=== PATIENT | female | born 1975 | race Caucasian/White ===

== ENCOUNTER 2023-02-19 02:10 | Emergency (ER) | payer BC, OTHER ==
[2023-02-19 02:56] VITALS: RESP 16
--- NOTE | 2023-02-19 02:58 | ED ---
General Adult HPI - General Chief complaint: Chest Pain Stated complaint: rib pain,sob Time Seen by Provider: 02/19/23 02:22 Source: patient, RN notes reviewed, old records reviewed Mode of arrival: ambulatory - History of Present Illness Initial comments: 47-year-old female presenting with left-sided chest pain which began several hours prior to arrival. Patient reports left-sided chest pain underneath her left breast. This began at rest. There was associated dyspnea. No cough or fever. No prior history of CAD or PE. Patient is a nonsmoker, nondiabetic. She has history of elevated blood pressure but is not currently being treated for hypertension. - Related Data Home Medications Medication Instructions Recorded Confirmed No Known Home Medications 01/04/16 01/04/16 Allergies Allergy/AdvReac Type Severity Reaction Status Date / Time No Known Allergies Allergy Verified 02/19/23 02:17 Review of Systems ROS Statement: Those systems with pertinent positive or pertinent negative responses have been documented in the HPI. ROS Other: All systems not noted in ROS Statement are negative. Past Medical History Past Medical History: No Reported History History of Any Multi-Drug Resistant Organisms: None Reported Past Surgical History: Cholecystectomy Past Psychological History: No Psychological Hx Reported Past Alcohol Use History: None Reported Past Drug Use History: None Reported General Exam General appearance: alert, in no apparent distress Head exam: Present: atraumatic, normocephalic Eye exam: Present: normal appearance, PERRL ENT exam: Present: normal exam Neck exam: Present: normal inspection. Absent: tenderness Respiratory exam: Present: normal lung sounds bilaterally, other (Left breast mass). Absent: respiratory distress, wheezes, chest wall tenderness Cardiovascular Exam: Present: regular rate, normal rhythm GI/Abdominal exam: Present: soft. Absent: distended, tenderness, guarding Extremities exam: Present: normal inspection, normal capillary refill. Absent: pedal edema, calf tenderness Neurological exam: Present: alert, oriented X3, CN II-XII intact. Absent: motor sensory deficit Psychiatric exam: Present: normal affect, normal mood Skin exam: Present: warm, dry, intact. Absent: cyanosis, diaphoretic Course Vital Signs 02/19/23 02/19/23 02/19/23 02:14 02:40 03:49 Temperature 97.8 F Pulse Rate 89 84 Respiratory 18 16 Rate Blood Pressure 168/106 167/99 151/90 O2 Sat by Pulse 100 100 Oximetry - Reevaluation(s) Reevaluation #1: 02/19/23 05:16 I did inform patient of the CT results including suspicious breast mass and pulmonary nodules with concern for metastatic disease. I offered the patient admission for further evaluation and treatment. She declines. She prefers outpatient treatment. I did refer the patient to breast surgery as well as oncology. I also provided names of primary care providers EKG Findings - EKG Comments: EKG Findings:: EKG: Sinus rhythm, LVH, rate of 84, PA interval 159, QRS duration 87, QTC 391, no ST segment elevation. Medical Decision Making - Medical Decision Making Was pt. sent in by a medical professional or institution (, PA, [employer]RE[employer] SUPERVISOR, urgent care, hospital, or senior care...) When possible be specific @ -[No] Did you speak to anyone other than the patient for history (EMS, parent, family, police, friend...)? What history was obtained from this source @ -[No] Did you review nursing and triage notes (agree or disagree)? Why? @ -[I reviewed and agree with nursing and triage notes] Were old charts reviewed (outside hosp., previous admission, EMS record, old EKG, old radiological studies, urgent care reports/EKG's, senior care records)? Report findings @ -[No old charts were reviewed] Differential Diagnosis (chest pain, altered mental status, abdominal pain women, abdominal pain men, vaginal bleeding, weakness, fever, dyspnea, syncope, heada kailey, dizziness, GI bleed, back pain, seizure, CVA, palpatations, mental health, musculoskeletal)? @ -Differential Chest Pain: Stable Angina, Unstable Angina, STEMI, NSTEMI Aortic Dissection, Pneumothorax, Musculoskeletal, Esophageal Spasm GERD, Cholecystitis, Pancreatitis, Zoster, this is not meant to be an all-inclusive list. EKG interpreted by me (3pts min.). @ -[As above] X-rays interpreted by me (1pt min.). @ -Chest x-ray negative for acute cardiopulmonary findings CT interpreted by me (1pt min.). @ -CT angiography was performed of the chest in the setting of an elevated d- dimer with pleuritic chest pain. This was negative for PE but showed a large sided breast mass as well as pulmonary nodules and lymphadenopathy. U/S interpreted by me (1pt. min.). @ -[None done] What testing was considered but not performed or refused? (CT, X-rays, U/S, labs)? Why? @ -[None] What meds were considered but not given or refused? Why? @ -[None] Did you discuss the management of the patient with other professionals (professionals i.e. , PA, [employer] SUPERVISOR, lab, RT, psych nurse, social work job titles, admiralty lawyer, teacher, youth liaison officer, case technician)? Give summary @ -[No] Was smoking cessation discussed for >3mins.? @ -[No] Was critical care preformed (if so, how long)? @ -[No] Were there social determinants of health that impacted care today? How? (Homelessness, low income, unemployed, alcoholism, drug addiction, transportation, low edu. Level, literacy, decrease access to med. care, assisted, rehab)? @ -[No] Was there de-escalation of care discussed even if they declined (Discuss DNR or withdrawal of care, Hospice)? DNR status @ -[No] What co-morbidities impacted this encounter? (DM, HTN, Smoking, COPD, CAD, Cancer, CVA, ARF, Chemo, Hep., AIDS, mental health diagnosis, sleep apnea, morbid obesity)? @ -Hypertension Was patient admitted / discharged? Hospital course, mention meds given and rou te, prescriptions, significant lab abnormalities, going to OR and other pertinent info. @ -47-year-old female presenting with left-sided chest pain and pain under her left breast. Patient does have a palpable mass within the left breast. She has an EKG showing sinus rhythm without ST segment elevation. She had essentially a normal CBC, normal CMP, negative troponin. She did have a significantly elevated d-dimer and CT angiography was ordered to rule out pulmonary embolism. There was no pulmonary embolism but there was multiple pulmonary nodules as well as left sided breast mass with concern for metastatic disease. I did offer the patient admission for further evaluation treatment however she preferred outpatient workup. She is given appropriate referrals. Undiagnosed new problem with uncertain prognosis? @ -[No] Drug Therapy requiring intensive monitoring for toxicity (Heparin, Nitro, Insulin, Cardizem)? @ -[No] Were any procedures done? @ -[No] Diagnosis/symptom? @ -Breast mass, pulmonary nodules] Acute, or Chronic, or Acute on Chronic? @ -[Acute] Uncomplicated (without systemic symptoms) or Complicated (systemic symptoms)? @ -[Complicated] Side effects of treatment? @ -[No] Exacerbation, Progression, or Severe Exacerbation? @ -[No] Poses a threat to life or bodily function? How? (Chest pain, [place], [place], pneumonia, PE, COPD, DKA, ARF, appy, cholecystitis, CVA, Diverticulitis, Homicidal, Suicidal, threat to staff... and all critical care pts) @ -[Yes, breast mass with concern for metastases] - Lab Data Result diagrams: 02/19/23 02:32 02/19/23 02:31 Lab Results 02/19/23 02/19/23 02/19/23 Range/Units 02:31 02:31 02:31 WBC (3.8-10.6) k/uL RBC (3.80-5.40) m/uL Hgb (11.4-16.0) gm/dL Hct (34.0-46.0) % MCV (80.0-100.0) fL MCH (25.0-35.0) pg MCHC (31.0-37.0) g/dL RDW (11.5-15.5) % Plt Count (150-450) k/uL MPV Neutrophils % % Lymphocytes % % Monocytes % % Eosinophils % % Basophils % % Neutrophils # (1.3-7.7) k/uL Lymphocytes # (1.0-4.8) k/uL Monocytes # (0-1.0) k/uL Eosinophils # (0-0.7) k/uL Basophils # (0-0.2) k/uL PT 9.8 (9.0-12.0) sec INR 0.9 (<1.2) APTT 21.7 L (22.0-30.0) sec D-Dimer 5.79 H (<0.60) mg/L FEU Sodium 136 L (137-145) mmol/L Potassium 4.1 (3.5-5.1) mmol/L Chloride 104 (98-107) mmol/L Carbon Dioxide 27 (22-30) mmol/L Anion Gap 5 mmol/L BUN 25 H (7-17) mg/dL Creatinine 0.86 (0.52-1.04) mg/dL Est GFR (CKD-EPI)AfAm >90 (>60 ml/min/1.73 sqM) Est GFR (CKD-EPI)NonAf 83 (>60 ml/min/1.73 sqM) Glucose 101 H (74-99) mg/dL Calcium 9.5 (8.4-10.2) mg/dL Magnesium 1.8 (1.6-2.3) mg/dL Total Bilirubin 0.5 (0.2-1.3) mg/dL AST 41 H (14-36) U/L ALT 17 (4-34) U/L Alkaline Phosphatase 141 H (38-126) U/L Troponin I <0.012 (0.000-0.034) ng/mL Total Protein 7.7 (6.3-8.2) g/dL Albumin 4.4 (3.5-5.0) g/dL 02/19/23 Range/Units 02:32 WBC 12.7 H (3.8-10.6) k/uL RBC 4.35 (3.80-5.40) m/uL Hgb 12.8 (11.4-16.0) gm/dL Hct 37.9 (34.0-46.0) % MCV 87.1 (80.0-100.0) fL MCH 29.5 (25.0-35.0) pg MCHC 33.8 (31.0-37.0) g/dL RDW 12.7 (11.5-15.5) % Plt Count 219 (150-450) k/uL MPV 7.9 Neutrophils % 78 % Lymphocytes % 14 % Monocytes % 6 % Eosinophils % 1 % Basophils % 0 % Neutrophils # 9.9 H (1.3-7.7) k/uL Lymphocytes # 1.7 (1.0-4.8) k/uL Monocytes # 0.8 (0-1.0) k/uL Eosinophils # 0.2 (0-0.7) k/uL Basophils # 0.0 (0-0.2) k/uL PT (9.0-12.0) sec INR (<1.2) APTT (22.0-30.0) sec D-Dimer (<0.60) mg/L FEU Sodium (137-145) mmol/L Potassium (3.5-5.1) mmol/L Chloride (98-107) mmol/L Carbon Dioxide (22-30) mmol/L Anion Gap mmol/L BUN (7-17) mg/dL Creatinine (0.52-1.04) mg/dL Est GFR (CKD-EPI)AfAm (>60 ml/min/1.73 sqM) Est GFR (CKD-EPI)NonAf (>60 ml/min/1.73 sqM) Glucose (74-99) mg/dL Calcium (8.4-10.2) mg/dL Magnesium (1.6-2.3) mg/dL Total Bilirubin (0.2-1.3) mg/dL AST (14-36) U/L ALT (4-34) U/L Alkaline Phosphatase (38-126) U/L Troponin I (0.000-0.034) ng/mL Total Protein (6.3-8.2) g/dL Albumin (3.5-5.0) g/dL Disposition Clinical Impression: Breast mass, left, Pulmonary nodules, Atypical chest pain Disposition: HOME SELF-CARE Condition: Fair Instructions (If sedation given, give patient instructions): Pulmonary Nodules (ED), Breast Mass (ED) Is patient prescribed a controlled substance at d/c from ED?: No Referrals: None,Stated [Primary Care Provider] - 1-2 days Va Coats MD [STAFF PHYSICIAN] - 1-2 days Giacomo Santo MD [STAFF PHYSICIAN] - 1-2 days Braulio Dinero MD [STAFF PHYSICIAN] - 1-2 days Juana Johnson III, MD [STAFF PHYSICIAN] - 1-2 days Robert Peters DO [STAFF PHYSICIAN] - 1-2 days Time of Disposition: 05:10
[2023-02-19 03:00] LABS: Basophils % (A) 0 %; Eosinophils # (A) 0.2 k/uL (0-0.7); Eosinophils % (A) 1 %; HCT 37.9 % (34.0-46.0); HGB 12.8 gm/dL (11.4-16.0); Lymphocytes # (A) 1.7 k/uL (1.0-4.8); Lymphocytes % (A) 14 %; MCH 29.5 pg (25.0-35.0); MCHC 33.8 g/dL (31.0-37.0); MCV 87.1 fL (80.0-100.0); Mean Platelet Volume 7.9; Monocytes # (A) 0.8 k/uL (0-1.0); Monocytes % (A) 6 %; Neutrophils # (A) 9.9 k/uL (1.3-7.7); Neutrophils % (A) 78 %; Platelet Count 219 k/uL (150-450); RBC 4.35 m/uL (3.80-5.40); RDW 12.7 % (11.5-15.5); WBC 12.7 k/uL (3.8-10.6)
[2023-02-19 03:01] LABS: ALT 17 U/L (4-34); AST 41 U/L (14-36); African American GFR (CKD) >90 (>60 ml/min/1.73 sqM); Albumin 4.4 g/dL (3.5-5.0); Alkaline Phosphatase 141 U/L (38-126); Anion Gap 5 mmol/L; Blood Urea Nitrogen 25 mg/dL (7-17); Calcium 9.5 mg/dL (8.4-10.2); Carbon Dioxide 27 mmol/L (22-30); Chloride 104 mmol/L (98-107); Glucose 101 mg/dL (74-99); Magnesium 1.8 mg/dL (1.6-2.3); Non-African American GFR(CKD) 83 (>60 ml/min/1.73 sqM); Potassium 4.1 mmol/L (3.5-5.1); Sodium 136 mmol/L (137-145); Total Bilirubin 0.5 mg/dL (0.2-1.3); Total Protein 7.7 g/dL (6.3-8.2)
--- NOTE | 2023-02-19 03:32 | XR ---
EXAM: XR Chest, 2 Views CLINICAL HISTORY: ITS.REASON XR Reason: Chest Pain TECHNIQUE: Frontal and lateral views of the chest. COMPARISON: No relevant prior studies available. FINDINGS: Lungs: Unremarkable. No consolidation. Pleural space: Unremarkable. No pneumothorax. Heart: Unremarkable. No cardiomegaly. Mediastinum: Unremarkable. Bones/joints: Unremarkable. IMPRESSION: Normal chest x-rays.
[2023-02-19 03:44] LABS: INR 0.9 (<1.2); Partial Thromboplastin Time 21.7 sec (22.0-30.0); Prothrombin Time 9.8 sec (9.0-12.0)
--- NOTE | 2023-02-19 04:53 | CT ---
EXAM: CT Angiography Chest With Intravenous Contrast CLINICAL HISTORY: ITS.REASON CT Reason: violet/pos dimer TECHNIQUE: Axial computed tomographic angiography images of the chest with intravenous contrast. CTDI is 21.77 mGy and DLP is 385 mGy-cm. This CT exam was performed using one or more of the following dose reduction techniques: automated exposure control, adjustment of the mA and/or kV according to patient size, and/or use of iterative reconstruction technique. MIP reconstructed images were created and reviewed. COMPARISON: No relevant prior studies available. FINDINGS: Pulmonary arteries: Unremarkable. No pulmonary embolism. Aorta: No acute findings. No thoracic aortic aneurysm. Lungs: Multiple randomly distributed solid pulmonary nodules measuring 12.6 cm in the inferior right base. Mild bibasilar atelectasis. No consolidation. Pleural space: Unremarkable. No significant effusion. No pneumothorax. Heart: Unremarkable. No cardiomegaly. No significant pericardial effusion. No evidence of RV dysfunction. Bones/joints: Lytic lesion in the posterior right eighth rib. No dislocation. Soft tissues: Left sided breast mass measuring 4.0 x 4.8 x 5.2 cm with tiny metallic density in the inferior aspect of the breast mass which may represent biopsy clip. Status post cholecystectomy. Lymph nodes: Left-sided axillary adenopathy measuring up to 2.1 cm on short axis.. No enlarged lymph nodes. IMPRESSION: 1. No acute pulmonary embolism. 2. Left-sided breast mass left-sided axillary adenopathy, multiple scattered pulmonary nodules, and lytic lesion in the right eighth rib consistent with metastatic breast cancer.
[2023-02-19 05:17] VITALS: BP 159/68; PULSE 72; TEMP 98.4
== END 2023-02-19 05:17 | disposition home or self-care (01) ==
LOC: EC 02:10
DX: N63.20 Unspecified lump in the left breast, unspecified quadrant (principal); R91.1 Solitary pulmonary nodule; Z90.49 Acquired absence of other specified parts of digestive tract
CPT/HCPCS: 36415; 93005; 85379; 80053; 83735; 84484; 85025; 85610; 85730; 71046; 71275; 99285; Q9967

== ENCOUNTER → 2023-04-04 | Outpatient (CLI) | payer BC ==
[2023-04-04 09:12] VITALS: BP 144/110; PULSE 117; RESP 18; TEMP 97.7
== END ==
LOC: WWCWWP 08:57
PROVIDERS: ATTEND Surgery
DX: N63.0 Unspecified lump in unspecified breast (principal)

== ENCOUNTER → 2023-04-04 | Day surgery (SDC) | payer BC ==
--- NOTE | 2023-04-04 09:54 | P.GSHP ---
History of Present Illness H&P Date: 04/04/23 Chief Complaint: left breast mass Eduarda is a 47 year old white female seen with a complaint of a mass in her left breast. She was seen in the ER with chest pain on 02-19-[address] revealed a 4.8 by 5.2 cm mass in her left breast. Multiople pulmonary nodules were noted as well as left sided adenopathy and a lytic lesion in the right eighth rib. She also underwent a chest x-ray in the emergency room which was considered to be normal. She underwent a bilateral mammogram and 5922 this revealed a 6.2 x 6.5 cm lesion in the midportion of the left breast. Additionally an ultrasound was performed which confirmed this with the lesion being taller than wide. This was her first mammogram. The patient did not have any specific lesions reported in the right breast. She felt a lump in her left breast for approximately a year. It has increased in size. She has never had any surgery on her breasts. She is not complaining of any recent breast trauma or infection. Does complain of some dimpling in the left breast, she is uncertain as to how long this has been . Caffiene: 1/2 cup/day nicotine:none chocolate: occasional BCP: used them for about 5 year in past form [age] hormones: none periods still regular Family History: maternal grandmother: Mesothelioma maternal great uncle: cancer ? 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[employer] Social History: Nicotine: Negative Alcohol: Negative Drugs: Negative - Constitutional Constitutional: Denies chills, Denies fever - EENT Eyes: denies blurred vision, denies pain Ears: deny: decreased hearing, tinnitus Ears, nose, mouth and throat: Denies headache, Denies sore throat - Breasts Breasts: bilateral: as per HPI - Cardiovascular Cardiovascular: Denies chest pain, Denies shortness of breath - Respiratory Respiratory: Denies cough, Denies 7 - Gastrointestinal Gastrointestinal: Denies abdominal pain, Denies diarrhea, Denies nausea, Denies vomiting - Genitourinary (Female) Genitourinary: Denies dysuria, Denies hematuria - Menstruation Menstruation: Reports as per HPI - Musculoskeletal Musculoskeletal: Reports as per HPI, Denies myalgias - Integumentary Integumentary: Denies pruritus, Denies rash - Neurological Neurological: Reports weakness, Denies numbness - Psychiatric Psychiatric: Denies anxiety, Denies depression - Endocrine Endocrine: Denies fatigue, Denies weight change - Hematologic/Lymphatic Comment: none - Allergic/Immunologic Allergic/Immunologic: Reports seasonal allergies Past Medical History Past Medical History: No Reported History Additional Past Medical History / Comment(s): back pain History of Any Multi-Drug Resistant Organisms: None Reported Past Surgical History: Cholecystectomy Past Anesthesia/Blood Transfusion Reactions: No Reported Reaction Past Psychological History: No Psychological Hx Reported Smoking Status: Never smoker Past Alcohol Use History: None Reported Past Drug Use History: None Reported Medications and Allergies Home Medications Medication Instructions Recorded Confirmed Type traMADol HCL 50 mg PO Q6H 03/28/23 04/04/23 History Cholecalciferol [Vitamin D3 (25 25 mcg PO DAILY 04/04/23 04/04/23 History Mcg = 1000 Iu)] Turmeric Root Extract [Turmeric] 500 mg PO DAILY 04/04/23 04/04/23 History Allergies Allergy/AdvReac Type Severity Reaction Status Date / Time No Known Allergies Allergy Verified 04/04/23 09:06 Surgical - Exam - General no distress - Eyes normal ocular movement - ENT no hearing loss - Neck trachea midline - Respiratory normal respiratory effort, clear to auscultation - Cardiovascular Rhythm: regular Heart Sounds: normal: S1, S2 - Abdomen Abdomen: soft, non tender, no guarding, no rigid, no rebound - Integumentary normal turgor - Neurologic no disoriented, no combative - Musculoskeletal normal gait, normal posture - Psychiatric oriented to time, oriented to person, oriented to place, speech is normal, memory intact Breast Exam: BRA: 40D Inspection: Asymmetry of the breast with right breast grade 2/3 ptosis, left breast with a fullness in the 12 o'clock position Palpation: Right breast: Multiple positional exam no dominant masses or nodules of concern Right axilla: No adenopathy of concern Left breast: Approximately a centimeter fullness starting at the 12 o'clock position and extending down to 6:00 with some change in the contour of the breast Left axilla: Positive adenopathy, enlarged lymph node felt which does not appear to be fixed to the underlying structures Results Mammogram and ultrasound personally reviewed Assessment and Plan Assessment: Impression: 47-year-old white female with chest pain presenting to the emergency room and noted to have a mass in the left breast pulmonary nodules lytic lesion right rib Plan: biopsy of the breast mass and node under the arm follow up next week after the results of the biopsy CC: Dr. Peters
--- NOTE | 2023-04-15 09:36 | MM ---
Reason for Exam: Post Procedure Mammogram. Last screening mammogram was performed less than 1 month ago. Patient History: Menarche at age 15. First Full-Term at age 19. Premenopausal. Risk Values: Katie 5 year model risk: 0.6%. NCI Lifetime model risk: 7.0%. Prior Study Comparison: 03/19/2023 Left US breast limited LT, [facility]. 03/19/2023 Bilateral MG 3D diag mammo w/cad SUSAN, [facility]. Tissue Density: Left: There are scattered fibroglandular densities. Pathology Description: Location: axillary tail. Marker Left Behind. Needle Type: Mammotome Cores: 6 Gauge: 13 Pathology Description: Location: 12 o'clock. Marker Left Behind. Needle Type: Celero Cores: 2 Gauge: 12 The procedure of ultrasound guided core biopsy was explained to the patient. Benefits, alternatives, and risks were discussed. An informed consent was then obtained. The patient was placed in supine positioning for imaging and for the procedure. The overlying skin was prepped and draped in usual sterile fashion. Lidocaine was used as anesthetic into the skin followed by lidocaine/epinephrine into the subcutaneous tissue up to area of concern at each site in the left breast in turn. 1. BI-RADS 5, large centrally located 12:00 mass: Under ultrasound guidance, a 12-gauge Celero vacuum assisted biopsy gun device was used to obtain 2 core samples. Following this, a Tophat biopsy clip was left in lesion. 2. BI-RADS 5, enlarged axillary node: Under ultrasound guidance, a 13-gauge vacuum-assisted mammotome Elite biopsy gun was used to obtain 6 core samples. Following this, a Hydromark coil biopsy clip was left in lesion. Successful deployment was confirmed by ultrasound. The patient tolerated the procedure well without any immediate complication. The patient was kept in the radiology department for short stay after the procedure and then discharged home in stable condition. Postprocedure mammogram: The patient was transferred to mammography for physician ordered post procedure mammogram for clip placement verification. On the postprocedure mammogram, the clip is noted within the large centrally located mass. On the second view for the axillary node, possible partially visualized second microcoil along the posterior margin of the enlarged axillary node. IMPRESSION: Successful, uncomplicated ultrasound guided core biopsy of (1) BI-RADS 5 large centrally located mass and (2) BI-RADS 5 axillary node in the left breast. Full pathology results to follow. Pathology Results: Result: Malignant, Invasive ductal carcinoma. A. LEFT BREAST, 12:00, ULTRASOUND GUIDED NEEDLE CORE BIOPSY: Invasive poorly differentiated ductal carcinoma (Grade 3). See Surgical Pathology Cancer Case Summary and Comment. B. LEFT AXILLA LYMPH NODE, ULTRASOUND GUIDED NEEDLE CORE BIOPSY: Invasive poorly differentiated ductal carcinoma (Grade 3) with focal mucinous features. See Surgical Pathology Cancer Case Summary and Comment. Notes SURGICAL PATHOLOGY CANCER CASE SUMMARY - INVASIVE CARCINOMA OF THE BREAST, BIOPSY PROCEDURE: Ultrasound guided needle core biopsy. SPECIMEN LATERALITY: Left. TUMOR SITE: 12:00 and left axilla. HISTOLOGIC TYPE: Invasive carcinoma of no special type (ductal). See comment. HISTOLOGIC GRADE (KYA HISTOLOGIC SCORE): GLANDULAR (ACINAR)/TUBULAR DIFFERENTIATION: Score 3. NUCLEAR PLEOMORPHISM: Score 3. MITOTIC RATE: Score 3. OVERALL GRADE: Grade 3 (total score 9). DUCTAL CARCINOMA IN SITU (DCIS): Focally present in part A. NUCLEAR GRADE: Grade 3. COMMENT: E-Cadherin immunoperoxidase stain performed on blocks A1 and B1, and evaluated with an appropriate positive control shows the tumor in both biopsies to be immunohistochemically positive for E-Cadherin. The results confirm the diagnoses of invasive ductal carcinoma. It is noted that the tumor in parts A and B appears slightly morphologically different, with focal mucinous features identified in part B. For this reason, ER, AL, HER2 and Ki-67 studies were performed on both blocks A1 and B1. It is also noted that no lymphoid tissue is identified in part B (submitted as left axilla lymph node). Therefore, it cannot be determined whether the tumor in part B represents a completely replaced node versus a separate primary arising in axillary breast tissue. Ki-67 immunoperoxidase stain performed on blocks A1 and B1 and evaluated with appropriate positive control show a tumor proliferative index of approximately 31-40% in part A and 31-40% in part B. Monorail Charger Operator material from this case was also reviewed by Dr. Ed Rajan, who agrees with the diagnoses of malignancy. ANCILLARY STUDIES: PART A (LEFT BREAST 12:00): ESTROGEN RECEPTOR (ER): Positive (81-90%), moderate to strong intensity staining. PROGESTERONE RECEPTOR (AL): Positive (11-20%), weak intensity staining. HER2 BY IHC: Positive (score 3+). PART B (LEFT AXILLA LYMPH NODE): ESTROGEN RECEPTOR (ER): Positive (61-70%), moderate to strong intensity staining. PROGESTERONE RECEPTOR (AL): Positive (21-30%), weak intensity staining. HER2 BY IHC: Positive (score 3+). Additional formalin-fixed paraffin embedded sections from block A1, B1 are immunostained at [place], [place] for the demonstration of estrogen and progesterone receptors, using rabbit IgG monoclonal antibodies ER clone SP1 and AL clone 1E2 with iView DAB detection ([place], [place], [place]). Using this method, and according to ASCO-CAP guidelines, a value of >1% nuclear staining is a positive result. Additional sections from block A1, B1 are immunostained for the evaluation of cell membrane antigens associated with the expression of the Her-2 gene product using the Pathway anti-HER-2/Jose rabbit monoclonal primary antibody 4B5 with ultraview DAB detection ([place], [place], [place]), the staining validated and performed at [place], [place], and including appropriate positive and negative controls. With this method, staining results are reported as follows: 0 is no staining of tumor cells or incomplete faint/barely perceptible membrane staining in less than 10% of tumor cells; 1+ is incomplete faint/barely perceptible membranes staining in greater than 10% of tumor cells; 2+ is weak/moderate complete membrane staining in greater than 10% of tumor cells; 3+ is circumferential complete membrane staining that is intense and present in greater than 10% of tumor cells. Results are interpreted as follows: 0,1+ negative; 2+ equivocal; 3+ positive. Current CAP/ASCO guidelines recommend further evaluation of equivocal immunostaining results by FISH testing to assess Her-2 overexpression at the gene level. Current CAP/ASCO guidelines recommend repeat testing of negative core biopsy immunostain results on additional specimens if the tumor is Grade 3, the amount of tumor assessed in the core material is small, the subsequent specimen contains high grade tumor morphologically distinct from that seen in the core, the core material is equivocal by immunostain and FISH, there is doubt about the appropriateness of specimen handling or fixation, or the pathologist suspects a negative result on the basis of test error. Overall Assessment: Malignant Assessment: MG diagnostic mammo LT wo CAD. - Left: Known biopsy proven malignancy, BI-RAD 6. Management: Surgical Consultation of the left breast. Electronically signed and approved by: Jana Ervin M.D. Radiologist
== END ==
LOC: RADUSWWP 08:57
PROVIDERS: ATTEND Surgery
DX: C50.812 Malignant neoplasm of overlapping sites of left female breast (principal); R91.8 Other nonspecific abnormal finding of lung field; Z90.49 Acquired absence of other specified parts of digestive tract; Z79.899 Other long term (current) drug therapy
CPT/HCPCS: 88305; 88342; 88341; 77065; 19083; 19084; A4648

== ENCOUNTER → 2023-04-05 | Outpatient (CLI) | payer BC ==
--- NOTE | 2023-04-06 07:16 | PE ---
EXAMINATION TYPE: PET CT fusion skull to thigh DATE OF EXAM: 04/05/2023 COMPARISON: NONE HISTORY: Newly diagnosed left-sided breast cancer. TECHNIQUE: Following the intravenous administration of 11.22 mCi of F-18 FDG, whole body images are performed from the skull base to the midthigh. Images are reviewed on the computer in the coronal, a xial, and sagittal planes. Reconstructed rotating images are created on independent workstation and reviewed on the computer. A localization and attenuation correction CT is performed in conjunction with the PET scan. Blood glucose level equals 92 SCAN: Initial Scan FINDINGS: SKULL BASE AND NECK: Abnormal hypermetabolic lymph node posterior to the inferior right submandibula r gland measuring 9 x 6 mm axial image 46, max SUV is 8.95. Mild diffuse uptake through the thyroid g land. Correlate clinically. Adjacent abnormal hypermetabolic adenopathy is felt present. There is abn ormal 1.4 cm lymph node just superior to right thyroid gland axial image 54, max SUV is 8.80. CHEST, MEDIASTINUM, AND HILAR REGION: There is large hypermetabolic left breast mass measuring 4.8 x 5.4 cm axial image 98, max SUV is 11.78. There is abnormal hypermetabolic left axillary lymph node wi th biopsy clip measuring 3.0 x 1.4 cm axial image 88, max SUV is 8.34. There are abnormal hypermetabolic and enlarged lymph nodes in the bilateral hilar region and also sca ttered throughout the mediastinum extending to supraclavicular region. Max SUV is 12.03 in the AP win teja axial image 82. No abnormal hypermetabolic uptake in the right breast or axilla. ABDOMEN AND PELVIS: Hypermetabolic area left hepatic lobe axial image [address] corre late, max SUV is 8.02. Hypermetabolic 2.3 x 1.5 cm right adrenal mass axial image 126, max SUV is 8.3 5. OSSEOUS STRUCTURES: Innumerable hypermetabolic osseous metastatic lesions. There is lytic destruction of the right posterolateral eighth rib axial image 103 noted, max SUV is 8.74 at this level. Hyperme tabolic Lytic destruction of the inferior left scapula noted axial image 98. OTHER CT: Mild cardiomegaly with tiny pericardial effusion is seen. Cholecystectomy clips are noted. Additional surgical clips in the anterior upper to mid abdomen are s een. Anteverted uterus is present. Scattered bilateral pelvic phleboliths are seen. IMPRESSION: Large left breast mass or neoplasm with left axillary adenopathy is redemonstrated. There is diffuse osseous metastatic disease. There is additional metastatic disease to lymph nodes in the neck and thorax. There is left hepatic metastatic lesion suspected and right adrenal metastatic lesio n noted.
== END | disposition home or self-care (01) ==
LOC: RADPETMAIN 06:32
PROVIDERS: ATTEND Family Medicine
DX: R92.8 Other abnormal and inconclusive findings on diagnostic imaging of breast (principal); R59.0 Localized enlarged lymph nodes; C79.51 Secondary malignant neoplasm of bone
CPT/HCPCS: 78815; A9552

== ENCOUNTER → 2023-04-12 | Outpatient (CLI) | payer BC ==
[2023-04-12 12:36] VITALS: BP 137/97; PULSE 135; RESP 18; TEMP 98.3
--- NOTE | 2023-04-12 12:56 | P.PN ---
Subjective Progress Note Date: 04/12/23 left breast mass Eduarda is a 47 year old white female seen with a complaint of a mass in her left breast. She was seen in the ER with chest pain on 02-19-[address] revealed a 4.8 by 5.2 cm mass in her left breast. Multiople pulmonary nodules were noted as well as left sided adenopathy and a lytic lesion in the right eighth rib. She also underwent a chest x-ray in the emergency room which was considered to be normal. She underwent a bilateral mammogram on 5922 this revealed a 6.2 x 6.5 cm lesion in the midportion of the left breast. Additionally an ultrasound was performed which confirmed this with the lesion being taller than wide. This was her first mammogram. The patient did not have any specific lesions reported in the right breast. She felt a lump in her left breast for approximately a year. It has increased in size. She has never had any surgery on her breasts. She is not complaining of any recent breast trauma or infection. Does complain of some dimpling in the left breast, she is uncertain as to how long this has been . ultrasound core biopsy of the left breast and left axilla on 04-04-23 (+) invasive ductal cancer; ER+, UT+, HER2+ PET scan was done 1 week ago Caffiene: 1/2 cup/day nicotine:none chocolate: occasional BCP: used them for about 5 year in past form 19- hormones: none periods still regular Family History: maternal grandmother: Mesothelioma maternal great uncle: cancer ? 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 Social History: Nicotine: Negative Alcohol: Negative Drugs: Negative - Constitutional Constitutional: Denies chills, Denies fever - EENT Eyes: denies blurred vision, denies pain Ears: deny: decreased hearing, tinnitus Ears, nose, mouth and throat: Denies headache, Denies sore throat - Breasts Breasts: bilateral: as per HPI - Cardiovascular Cardiovascular: Denies chest pain, Denies shortness of breath - Respiratory Respiratory: Denies cough, Denies 7 - Gastrointestinal Gastrointestinal: Denies abdominal pain, Denies diarrhea, Denies nausea, Denies vomiting - Genitourinary (Female) Genitourinary: Denies dysuria, Denies hematuria - Menstruation Menstruation: Reports as per HPI - Musculoskeletal Musculoskeletal: Reports as per HPI, Denies myalgias - Integumentary Integumentary: Denies pruritus, Denies rash - Neurological Neurological: Reports weakness, Denies numbness - Psychiatric Psychiatric: Denies anxiety, Denies depression - Endocrine Endocrine: Denies fatigue, Denies weight change - Hematologic/Lymphatic Comment: none - Allergic/Immunologic Allergic/Immunologic: Reports seasonal allergies Past Medical History Past Medical History: No Reported History Additional Past Medical History / Comment(s): back pain History of Any Multi-Drug Resistant Organisms: None Reported Past Surgical History: Cholecystectomy Past Anesthesia/Blood Transfusion Reactions: No Reported Reaction Past Psychological History: No Psychological Hx Reported Smoking Status: Never smoker Past Alcohol Use History: None Reported Past Drug Use History: None Reported Medications and Allergies Home Medications Medication Instructions Recorded Confirmed Type traMADol HCL 50 mg PO Q6H 03/28/23 04/04/23 History Cholecalciferol [Vitamin D3 (25 25 mcg PO DAILY 04/04/23 04/04/23 History Mcg = 1000 Iu)] Turmeric Root Extract [Turmeric] 500 mg PO DAILY 04/04/23 04/04/23 History Allergies Allergy/AdvReac Type Severity Reaction Status Date / Time No Known Allergies Allergy Verified 04/04/23 09:06 Objective - Vital Signs Vital signs: Vital Signs Temp 98.3 F 04/12/23 12:34 Pulse 135 H 04/12/23 12:34 Resp 18 04/12/23 12:34 BP 137/97 04/12/23 12:34 Pulse Ox 98 04/12/23 12:34 FiO2 Intake & Output 04/11/23 04/12/23 04/12/23 18:59 06:59 18:59 Weight 73.028 kg - Constitutional General appearance: Present: cooperative - EENT Eyes: Present: EOMI ENT: Present: hearing grossly normal - Neck Neck: Present: normal ROM - Respiratory Respiratory: bilateral: CTA - Cardiovascular Heart sounds: normal: S1, S2 - Musculoskeletal Musculoskeletal: Present: gait normal - Psychiatric Psychiatric: Present: A&O x's 3, appropriate affect, intact judgment & insight - Additional findings Additional findings: Breast Exam: BRA: 40D Inspection: Asymmetry of the breast with right breast grade 2/3 ptosis, left carlton ast with a fullness in the 12 o'clock position Palpation: Right breast: Multiple positional exam no dominant masses or nodules of concern Right axilla: No adenopathy of concern Left breast: Approximately a centimeter fullness starting at the 12 o'clock position and extending down to 6:00 with some change in the contour of the breast Left axilla: Positive adenopathy, enlarged lymph node felt which does not appear to be fixed to the underlying structures Assessment and Plan Assessment: Impression: 47-year-old white female with chest pain presenting to the emergency room and noted to have a mass in the left breast pulmonary nodules lytic lesion right rib Plan: biopsy of the breast mass and node under the arm (+) for invasive ductal cancer Await PET scan results Appointment medical oncology CC: Dr. Peters
== END ==
LOC: WWCWWP 11:57
PROVIDERS: ATTEND Surgery
DX: N63.20 Unspecified lump in the left breast, unspecified quadrant (principal); R91.8 Other nonspecific abnormal finding of lung field; C50.912 Malignant neoplasm of unspecified site of left female breast; Z17.0 Estrogen receptor positive status [ER+]; Z98.890 Other specified postprocedural states; Z80.8 Family history of malignant neoplasm of other organs or systems

== ENCOUNTER → 2023-04-16 | Outpatient (CLI) | payer BC ==
--- NOTE | 2023-04-17 10:54 | CA ---
Transthoracic Echo Report Name: Eduarda Ruggiero Age: 47 Gender: F : 1975 Exam Date: 04/16/2023 09:44 Exam Location: [place] [facility] Ht (in): 65 Wt (lb): 147 Ordering Physician: Holger Yuen MD Attending/Referring Phys: Inside Wirer Francoise Urban RDCS Procedure CPT: Indications: Z01.818 Chemo Cardiac Hx: Technical Quality: Fair Contrast 1: Total Dose (mL): Contrast 2: Total Dose (mL): MEASUREMENTS (Male / Female) Normal Values 2D ECHO LV Diastolic Diameter PLAX 3.2 cm 4.2 - 5.9 / 3.9 - 5.3 cm LV Systolic Diameter PLAX 2.2 cm IVS Diastolic Thickness 1.3 cm 0.6 - 1.0 / 0.6 - 0.9 cm LVPW Diastolic Thickness 1.4 cm 0.6 - 1.0 / 0.6 - 0.9 cm LV Relative Wall Thickness 0.9 RV Internal Dim ED PLAX 2.8 cm LA Volume 28.3 cm??? 18 - 58 / 22 - 52 cm??? M-MODE Aortic Root Diameter MM 2.9 cm LA Systolic Diameter MM 3.1 cm LA Ao Ratio MM 1.1 AV Cusp Separation MM 1.8 cm DOPPLER AV Peak Velocity 140.1 cm/s AV Peak Gradient 7.8 mmHg AV Mean Velocity 110.4 cm/s AV Mean Gradient 5.1 mmHg AV Velocity Time Integral 21.9 cm LVOT Peak Velocity 102.5 cm/s LVOT Peak Gradient 4.2 mmHg LVOT Velocity Time Integral 20.0 cm MV Area PHT 7.0 cm??? Mitral E Point Velocity 68.2 cm/s Mitral A Point Velocity 97.7 cm/s Mitral E to A Ratio 0.7 MV Deceleration Time 107.8 ms MV E' Velocity 7.4 cm/s Mitral E to MV E' Ratio 9.2 TR Peak Velocity 225.4 cm/s TR Peak Gradient 20.3 mmHg FINDINGS Left Ventricle Moderately increased left ventricular wall thickness. Normal left ventricular systolic function with no obvious regional wall motion abnormalities. Left ventricular cavity size normal. Left ventricular ejection fraction is estimated at 55-60 %. Right Ventricle Normal right ventricular size and function. Right ventricular systolic pressure within normal limits. Right Atrium Normal right atrial size. Left Atrium Normal left atrial size. Mitral Valve Structurally normal mitral valve. Trace mitral regurgitation. Aortic Valve Trileaflet aortic valve. No aortic valve stenosis or regurgitation. Tricuspid Valve Structurally normal tricuspid valve. Mild tricuspid regurgitation. Pulmonic Valve Trace pulmonic regurgitation. Pericardium No pericardial effusion. Aorta Normal size aortic root and proximal ascending aorta. CONCLUSIONS Normal LV systolic function with no evidence of foreign motion abnormalities Strain images did not indicate evidence of Amyloid Previewed by: Dr. Osmar Garcia MD (Electronically Signed) Final Date: 17 April 2023 10:53
== END | disposition home or self-care (01) ==
LOC: RADECHMAIN 09:34
PROVIDERS: ATTEND Internal Medicine Hematology & Oncology
DX: Z01.818 Encounter for other preprocedural examination (principal)
CPT/HCPCS: 93306

== ENCOUNTER → 2023-04-16 | Outpatient (CLI) | payer BC ==
--- NOTE | 2023-04-16 12:59 | MR ---
EXAMINATION TYPE: MR brain wo/w con DATE OF EXAM: 04/16/2023 COMPARISON: Correlation PET/CT 04/05/2023 HISTORY: 47-year-old female C50.412, Hx of Cancer, f/u TECHNIQUE: Multiplanar, multisequence images of the brain and brainstem were acquired before and aft er administration of 6 mL IV Gadavist. Diffusion weighted imaging is performed. FINDINGS: No evidence for acute infarction, hemorrhage, mass effect, midline shift, herniation, effacement of b khris cisterns, or extra-axial fluid collection. The ventricles and sulci are age-appropriate. There are numerous enhancing lesions throughout the supratentorial and infratentorial region. Approximately 5 in the left cerebral hemisphere, most at the patton-white matter interface, largest in the anterior left frontal lobe measuring 9 mm and left thalamus measuring 7 mm. Approximately 5 in the right cerebral hemisphere. A couple lesions are present along the tentorium cerebelli on each side. In addition, there are approximately 5 lesions in total on both sides of the cerebellum measuring up to 9 mm on the right. These lesions show corresponding bright T2 signal. The largest, for example, anterior left frontal lo be and right cerebellum show some mild surrounding vasogenic edema. Again, no mass effect. Midline structures demonstrate normal morphology. The craniocervical junction is normal. Dural venous sinuses are patent. The visualized sinuses are clear and the globes are intact. IMPRESSION: Scattered intracranial metastases, approximately 5 lesions in each cerebral hemisphere, a couple adelaide g the tentorium cerebelli, and 5 in the cerebellum. The largest, anterior left frontal lobe measuring 9 mm, left thalamus measuring 7 mm, and right cerebellum measuring 9 mm show mild vasogenic edema bu t no mass effect.
== END | disposition home or self-care (01) ==
LOC: RADMRIMAIN 09:36
PROVIDERS: ATTEND Internal Medicine Hematology & Oncology
DX: C50.412 Malignant neoplasm of upper-outer quadrant of left female breast (principal); C79.31 Secondary malignant neoplasm of brain
CPT/HCPCS: 70553; A9585

== ENCOUNTER → 2023-07-04 | Outpatient (CLI) | payer BC ==
--- NOTE | 2023-07-04 15:16 | CA ---
Transthoracic Echo Report Name: Eduarda Ruggiero Age: 47 Gender: F : 1975 Exam Date: 07/04/2023 09:56 Exam Location: [facility] Ht (in): 60 Wt (lb): 146 Ordering Physician: Holger Yuen MD Attending/Referring Phys: Holger Yuen MD Clay Puddler Jeanette Prajapati RDCS Procedure CPT: Indications: Z01.818 ENCOUNTER FOR OTHER PREPROCEDURAL EXAMINAT Cardiac Hx: Technical Quality: Good Contrast 1: Total Dose (mL): Contrast 2: Total Dose (mL): MEASUREMENTS (Male / Female) Normal Values 2D ECHO LV Diastolic Diameter PLAX 3.9 cm 4.2 - 5.9 / 3.9 - 5.3 cm LV Systolic Diameter PLAX 2.5 cm IVS Diastolic Thickness 1.3 cm 0.6 - 1.0 / 0.6 - 0.9 cm LVPW Diastolic Thickness 1.2 cm 0.6 - 1.0 / 0.6 - 0.9 cm LV Relative Wall Thickness 0.6 RV Internal Dim ED PLAX 3.0 cm LA Systolic Diameter LX 3.3 cm 3.0 - 4.0 / 2.7 - 3.8 cm LV Diastolic Volume MOD 4C 49.7 cm??? LV Systolic Volume MOD 4C 24.1 cm??? LV Ejection Fraction MOD 4C 51.6 % LV Cardiac Index MOD 4C 1572.5 cm???/min???m??? LV Diastolic Length 4C 6.8 cm LV Systolic Length 4C 5.7 cm LV Diastolic Volume MOD 2C 48.4 cm??? LV Systolic Volume MOD 2C 20.5 cm??? LV Ejection Fraction MOD 2C 57.6 % LV Cardiac Index MOD 2C 1706.9 cm???/min???m??? LV Diastolic Length 2C 7.1 cm LV Systolic Length 2C 6.2 cm LA Volume 42.1 cm??? 18 - 58 / 22 - 52 cm??? M-MODE Aortic Root Diameter MM 3.2 cm MV E Point Septal Separation 0.4 cm AV Cusp Separation MM 2.0 cm DOPPLER AV Peak Velocity 124.1 cm/s AV Peak Gradient 6.2 mmHg MV Area PHT 4.2 cm??? Mitral E Point Velocity 55.6 cm/s Mitral A Point Velocity 87.4 cm/s Mitral E to A Ratio 0.6 MV Deceleration Time 178.5 ms MV E' Velocity 3.8 cm/s Mitral E to MV E' Ratio 14.8 TR Peak Velocity 253.7 cm/s TR Peak Gradient 25.7 mmHg Right Ventricular Systolic Press 30.4 mmHg FINDINGS Left Ventricle Left ventricular ejection fraction is estimated at 50-55 %. Left ventricular cavity size normal. Moderately increased septal wall thickness. Mildly increased posterior wall thickness. Right Ventricle Normal right ventricular size. Right ventricular systolic pressure within normal limits. Right Atrium Normal right atrial size. Left Atrium Normal left atrial size. Mitral Valve Structurally normal mitral valve. Trace to mild mitral regurgitation. Aortic Valve Trileaflet aortic valve. No aortic valve stenosis or regurgitation. Tricuspid Valve Structurally normal tricuspid valve. Mild tricuspid regurgitation. Pulmonic Valve Structurally normal pulmonic valve. No pulmonic regurgitation. Pericardium No pericardial effusion. Aorta Normal size aortic root and proximal ascending aorta. CONCLUSIONS Normal LV size and systolic function No intracardiac masses Previewed by: Dr. Stephen Aponte MD (Electronically Signed) Final Date: 04 July 2023 15:15
== END | disposition home or self-care (01) ==
LOC: RADECHMAIN 09:44
PROVIDERS: ATTEND Internal Medicine Hematology & Oncology
DX: Z01.818 Encounter for other preprocedural examination (principal); I08.1 Rheumatic disorders of both mitral and tricuspid valves
CPT/HCPCS: 93306

== ENCOUNTER → 2023-07-31 | Outpatient (CLI) | payer BC ==
--- NOTE | 2023-07-31 11:26 | MR ---
EXAMINATION TYPE: MR brain wo/w con DATE OF EXAM: 07/31/2023 COMPARISON: 04/16/2000 HISTORY: Breast CA with mets TECHNIQUE: Multiplanar, multisequence images of the brain and brainstem is performed without and with IV contras t, utilizing 6.5 mL intravenous Gadavist . FINDINGS: Diffusion weighted images demonstrate no evidence of a recent infarct or other diffusion ab normality. Ventricular systems compatible patient's age. There is enhancing subcutaneous nodule along the left parietal convexity measuring 1 cm by clearly se en on the prior exam Additional 6 mm subcutaneous nodule along upper left parietal convexity retrospectively stable. There is a 5 mm subcutaneous nodule along the posterior right occiput is stable without enhancement possib ly related to sebaceous cyst Midline structures demonstrate normal morphology. The craniocervical junction appears within normal limits. Nonspecific area without enhancement Seen on T2 imaging and not well replicated on FLAIR. Measures 5 mm followed subsequently. Post contrast images demonstrate near complete resolution of enhancement in the right cerebellar shaniqua sphere. There is a residual linear area of enhancement in the area of previously described 9 mm nodul arity measuring approximately 4 mm. Stable 3 mm area of enhancement in the left cerebellum. Interval reduction in size of a cerebellar vermis lesion now measuring 3 mm Near complete resolution of right temporal 3 mm area of enhancement. On today's mm enhancement in the left temporal lobe has resolved. Previously noted left thalmus lesion measured 5 mm now measures 1.5 mm. Patient noted 4 mm nodule posterior to the atrium of the right lateral ventricle now measures 1 mm 5 mm nodule seen in the posterior right parietal lobe now measures 3 mm. Left frontal lesion previously measuring 7 mm appears faint and measures 4 mm. There are no new nodules identified. The dural venous sinuses appear patent. Mild changes of chronic sinusitis and the globes are intact. Partially empty sella turcica. There is improvement in the asymmetric enhancement of the right dura which now appears fairly symmetr ic along the right temporal lobe. IMPRESSION: 1. The intracranial areas of metastasis demonstrate interval reduction in size relative to prior exam compatible with response to therapy. No new nodules are seen. 2. There are two subcutaneous nodules overlying the left cerebral convexity one of which is stable an d the other which was not seen with certainty on prior exam noted on axial image 16 postcontrast T1 s eries 702 measuring 6 mm.
== END | disposition home or self-care (01) ==
LOC: RADMRIMAIN 09:12
PROVIDERS: ATTEND Radiology Radiation Oncology
DX: C79.51 Secondary malignant neoplasm of bone (principal); C77.3 Secondary and unspecified malignant neoplasm of axilla and upper limb lymph nodes; C79.31 Secondary malignant neoplasm of brain; C50.412 Malignant neoplasm of upper-outer quadrant of left female breast; R22.0 Localized swelling, mass and lump, head
CPT/HCPCS: 70553; A9585

== ENCOUNTER → 2023-08-29 | Outpatient (CLI) | payer BC ==
--- NOTE | 2023-09-02 21:57 | PE ---
EXAMINATION TYPE: PET CT fusion skull to thigh DATE OF EXAM: 08/29/2023 COMPARISON: CT chest 02/19/2023 Prior PET/CT: 04/05/2023 HISTORY: Breast cancer TECHNIQUE: Following the intravenous administration of 10.5 mCi of F-18 FDG, whole body images are p erformed from the skull base to the midthigh. Images are reviewed on the computer in the coronal, ax ial, and sagittal planes. Reconstructed rotating images are created on independent workstation and r eviewed on the computer. A localization and attenuation correction CT is performed in conjunction w ith the PET scan. DLP: 325.95 mGycm SCAN: Subsequent Blood glucose: 97 mg/dL Average Mediastinum SUV: 1.62 Average Liver SUV: 2.15 FINDINGS: NECK: There is some focal uptake within the right vocal cord. Some fullness of the left vocal cord m ay be present with asymmetry although no uptake on the left side is evident. Direct visualization is recommended. Image 44, SUV 2.95. THORAX: No suspicious uptake. No suspicious uptake within the left breast or axillary region. No medi astinal or hilar is uptake evident. ABDOMEN: No abnormal uptake. No suspicious hepatic or adrenal uptake. PELVIS: No abnormal uptake OSSEOUS STRUCTURES: No abnormal uptake. Previous scapula and rib uptake has resolved. Previous verteb ral body uptake has resolved LOCALIZATION CT: Core markers may be within the left breast mass left axillary node. No uptake adjace nt to the clips is evident COMPARISON: Previous uptake within the left breast has resolved. No suspicious uptake within the left axillary region is evident at this time. Previous mediastinal uptake has resolved. Uptake within the scapula has resolved. No suspicious rib uptake is identified at this time. IMPRESSION: 1. No suspicious uptake to suggest recurrent or metastatic breast cancer at this time. Previous abnor mal areas of uptake have resolved. Monitoring is recommended. 2. There is some asymmetric uptake within the right vocal cord with asymmetry of the left focal CORD. Direct visualization is recommended.
== END | disposition home or self-care (01) ==
LOC: RADPETMAIN 08:24
PROVIDERS: ATTEND Internal Medicine Hematology & Oncology
DX: C50.412 Malignant neoplasm of upper-outer quadrant of left female breast (principal)
CPT/HCPCS: 78815; A9552

== ENCOUNTER → 2023-10-23 | Outpatient (CLI) | payer BC ==
--- NOTE | 2023-10-25 10:35 | MR ---
EXAMINATION TYPE: MR brain wo/w con DATE OF EXAM: 10/23/2023 5:07 PM CLINICAL INDICATION:Female, 47 years old with history of C79.51 SECONDARY MALIGNANT NEOPLASM OF BONE; PHH, Hx Left breast cancer COMPARISON: 07/31/2023, 04/16/2023. TECHNIQUE: Multi planar, multi sequence imaging was performed through the brain including: T1, T2, In version recovery, susceptibility weighted imaging and gradient echo imaging and Diffusion weighted im aging. The patient was then given intravenous contrast and multi planar, T1 fat-saturation images wer e obtained. IV Contrast: 6.5 cc Gadobutrol FINDINGS: There is been progression of disease with multiple enhancing lesions which have increased in size and number compared to prior exam. These are most pronounced in the cerebellum with at least 12 lesions identified. The largest in the right cerebral hemisphere measuring up to 14 mm, previously 9 mm on pr ior on 10 mm on prior before that. Other scattered examples include areas of abnormal enhancement in the right frontal lobe series 701 image 143 and 150, 128, right parietal lobe image 105, right tempor al lobe image 64, left temporal lobe 86, left occipital lobe image 91, left thalamus image 92,a left frontal lobe image 109, 137, left parietal lobe image 130. Blooming artifact around this lesion in the posterior scalp on the left suggesting calcification mickey cation. Diffusion-weighted imaging shows no evidence of restricted diffusion to suggest acute/subacute infar ct. Intracranial arterial flow voids are maintained. Midline structures show no abnormality. The susc eptibility weighted images do not reveal any evidence for micro-hemorrhage. The bone marrow signal is within normal limits, no suspicious osseous lesions at this time Paranasal sinuses and mastoid air cells: No significant paranasal sinus disease. Visualized orbits: Orbital contents are intact. IMPRESSION: Progression of disease with increasing size and number of metastatic enhancing foci throughout the br ain.
== END | disposition home or self-care (01) ==
LOC: RADMRIMAIN 15:45
PROVIDERS: ATTEND Radiology Radiation Oncology
DX: C79.51 Secondary malignant neoplasm of bone (principal); C77.3 Secondary and unspecified malignant neoplasm of axilla and upper limb lymph nodes; C50.412 Malignant neoplasm of upper-outer quadrant of left female breast
CPT/HCPCS: 70553; A9585

== ENCOUNTER → 2023-11-13 | Outpatient (CLI) | payer BC | END | disposition home or self-care (01) | LOC: LABWHC1 10:04 | PROVIDERS: ATTEND Radiology Radiation Oncology | DX: C79.31 Secondary malignant neoplasm of brain (principal); C79.51 Secondary malignant neoplasm of bone; C77.3 Secondary and unspecified malignant neoplasm of axilla and upper limb lymph nodes; C50.412 Malignant neoplasm of upper-outer quadrant of left female breast | CPT/HCPCS: 81025 ==

== ENCOUNTER → 2023-12-17 | Outpatient (CLI) | payer BC ==
--- NOTE | 2023-12-17 17:54 | CA ---
Transthoracic Echo Report Name: Eduarda Ruggiero Age: 48 Gender: F : 1975 Exam Date: 12/17/2023 16:42 Exam Location: [facility] Ht (in): 61 Wt (lb): 140 Ordering Physician: Holger Yuen MD Attending/Referring Phys: Truck Manager Francoise Urban RDCS Procedure CPT: Indications: Z01.818 Pre-chemo Cardiac Hx: Technical Quality: Fair Contrast 1: Total Dose (mL): Contrast 2: Total Dose (mL): MEASUREMENTS (Male / Female) Normal Values 2D ECHO LV Diastolic Diameter PLAX 4.1 cm 4.2 - 5.9 / 3.9 - 5.3 cm LV Systolic Diameter PLAX 2.9 cm IVS Diastolic Thickness 1.1 cm 0.6 - 1.0 / 0.6 - 0.9 cm LVPW Diastolic Thickness 0.9 cm 0.6 - 1.0 / 0.6 - 0.9 cm LV Relative Wall Thickness 0.5 LA Volume 36.5 cm??? 18 - 58 / 22 - 52 cm??? LA Volume Index 21.9 cm???/m??? 16 - 28 cm???/m??? M-MODE Aortic Root Diameter MM 3.0 cm LA Systolic Diameter MM 3.6 cm LA Ao Ratio MM 1.2 AV Cusp Separation MM 2.1 cm DOPPLER AV Peak Velocity 137.0 cm/s AV Peak Gradient 7.5 mmHg AV Mean Velocity 100.7 cm/s AV Mean Gradient 4.3 mmHg AV Velocity Time Integral 25.5 cm LVOT Peak Velocity 88.8 cm/s LVOT Peak Gradient 3.2 mmHg LVOT Velocity Time Integral 19.1 cm MV Area PHT 3.1 cm??? Mitral E Point Velocity 46.5 cm/s Mitral A Point Velocity 73.9 cm/s Mitral E to A Ratio 0.6 MV Deceleration Time 244.0 ms MV E' Velocity 5.0 cm/s Mitral E to MV E' Ratio 9.3 TR Peak Velocity 212.1 cm/s TR Peak Gradient 18.0 mmHg FINDINGS Left Ventricle Mildly increased left ventricular wall thickness. Left ventricular cavity size normal. Normal left ventricular systolic function with no obvious regional wall motion abnormalities. Left ventricular ejection fraction is estimated at 55-60 %. Right Ventricle Normal right ventricular size and function. Right ventricular systolic pressure within normal limits. Right Atrium Normal right atrial size. Left Atrium Normal left atrial size. Mitral Valve Structurally normal mitral valve. No mitral stenosis or prolapse.trace to mild mitral regurgitation. Aortic Valve Trileaflet aortic valve. No aortic valve stenosis or regurgitation. Tricuspid Valve Structurally normal tricuspid valve. Mild tricuspid regurgitation. Pulmonic Valve Structurally normal pulmonic valve. Pericardium No pericardial effusion. Aorta Normal size aortic root and proximal ascending aorta. CONCLUSIONS 1. Normal left ventricle size and systolic function 2. Mild tricuspid with trace to mild mitral regurgitation Previewed by: Dr. Christopher Mcbride MD (Electronically Signed) Final Date: 17 December 2023 17:53
== END | disposition home or self-care (01) ==
LOC: RADECHMAIN 16:39
PROVIDERS: ATTEND Internal Medicine Hematology & Oncology
DX: Z01.818 Encounter for other preprocedural examination (principal); I34.0 Nonrheumatic mitral (valve) insufficiency; I36.1 Nonrheumatic tricuspid (valve) insufficiency; C50.412 Malignant neoplasm of upper-outer quadrant of left female breast; Z71.3 Dietary counseling and surveillance
CPT/HCPCS: 93306

== ENCOUNTER → 2024-01-02 | Outpatient (CLI) | payer BC ==
--- NOTE | 2024-01-06 20:55 | PE ---
EXAMINATION TYPE: PET CT fusion skull to thigh DATE OF EXAM: 01/02/2024 COMPARISON: No recent pertinent CT Prior PET/CT: 08/29/2023 HISTORY: Breast cancer TECHNIQUE: Following the intravenous administration of 11.25 mCi of F-18 FDG, whole body images are performed from the skull base to the midthigh. Images are reviewed on the computer in the coronal, a xial, and sagittal planes. Reconstructed rotating images are created on independent workstation and reviewed on the computer. A localization and attenuation correction CT is performed in conjunction with the PET scan. DLP: 310.10 mGycm SCAN: Subsequent Blood glucose: 88 mg/dL Average Mediastinum SUV: 2.04 Average Liver SUV: 2.48 FINDINGS: NECK: There is mild diffuse uptake within the bilateral thyroid lobes. Correlate for thyroiditis. No suspicious focal uptake identified. THORAX: No abnormal uptake ABDOMEN: No abnormal uptake PELVIS: No abnormal uptake OSSEOUS STRUCTURES: No abnormal uptake LOCALIZATION CT: No suspicious CT findings COMPARISON: None IMPRESSION: 1. No suspicious uptake to suggest metastatic breast cancer. 2. There is increased uptake within the bilateral thyroid lobes diffusely. Correlate for thyroiditis.
== END | disposition home or self-care (01) ==
LOC: RADPETMAIN 08:52
PROVIDERS: ATTEND Family Medicine
DX: C50.412 Malignant neoplasm of upper-outer quadrant of left female breast (principal); E07.89 Other specified disorders of thyroid
CPT/HCPCS: 78815; A9552

== ENCOUNTER → 2024-01-28 | Outpatient (CLI) | payer BC ==
--- NOTE | 2024-02-01 16:30 | MR ---
EXAMINATION TYPE: MR brain wo/w con DATE OF EXAM: 01/28/2024 6:44 PM CLINICAL INDICATION:Female, 48 years old with history of C79.31 SECONDARY MALIGNANT NEOPLASM OF BRAIN ; PHH, F/U to radiation treatment, breast cancer with brain mets. COMPARISON: 10/25/2023 TECHNIQUE: Multi planar, multi sequence imaging was performed through the brain including: T1, T2, In version recovery, susceptibility weighted imaging and gradient echo imaging and Diffusion weighted im aging. The patient was then given intravenous contrast and multi planar, T1 fat-saturation images wer e obtained. IV Contrast: 6 cc Gadavist FINDINGS: There is positive response to therapy with decrease in size of multiple lesions seen on prior could s imilar lesions are no longer visualized. Examples include: right cerebellum measuring 10 x 5 mm, prev iously 14 x 8 mm left cerebellum measuring 4 mm, previously 7 mm ,left thalamus measuring 4 mm previo usly 8 mm right frontal lobe 1-2 mm, previously 6 mm. Diffusion-weighted imaging shows no evidence of restricted diffusion to suggest acute/subacute infar ct. Intracranial arterial flow voids are maintained. Midline structures show no abnormality. The susc eptibility weighted images do not reveal any evidence for micro-hemorrhage. The bone marrow signal is within normal limits, no suspicious osseous lesions at this time Paranasal sinuses and mastoid air cells: No significant paranasal sinus disease. Visualized orbits: Orbital contents are intact. IMPRESSION: Positive response to therapy with decreasing size and number of metastatic enhancing foci throughout the brain.
== END | disposition home or self-care (01) ==
LOC: RADMRIMAIN 17:56
PROVIDERS: ATTEND Radiology Radiation Oncology
DX: C79.31 Secondary malignant neoplasm of brain (principal); C77.3 Secondary and unspecified malignant neoplasm of axilla and upper limb lymph nodes; C79.51 Secondary malignant neoplasm of bone; C50.919 Malignant neoplasm of unspecified site of unspecified female breast
CPT/HCPCS: 70553; A9585

== ENCOUNTER → 2024-04-24 | Outpatient (CLI) | payer BC ==
--- NOTE | 2024-04-24 11:27 | CA ---
Transthoracic Echo Report Name: Eduarda Ruggiero Age: 48 Gender: F : 1975 Exam Date: 04/24/2024 08:49 Exam Location: [facility] Ht (in): Wt (lb): Ordering Physician: Holger Yuen MD Attending/Referring Phys: Holger Yuen MD Spinning Doffer Cat Keating, RDCS Procedure CPT: Indications: Z01.818 CHEMO/PRE OP Cardiac Hx: Technical Quality: Good Contrast 1: Total Dose (mL): Contrast 2: Total Dose (mL): MEASUREMENTS (Male / Female) Normal Values 2D ECHO LV Diastolic Diameter PLAX 2.5 cm 4.2 - 5.9 / 3.9 - 5.3 cm LV Systolic Diameter PLAX 4.0 cm IVS Diastolic Thickness 0.3 cm 0.6 - 1.0 / 0.6 - 0.9 cm LVPW Diastolic Thickness 0.6 cm 0.6 - 1.0 / 0.6 - 0.9 cm LV Relative Wall Thickness 0.4 LV Diastolic Volume MOD 4C 98.7 cm??? LV Systolic Volume MOD 4C 56.3 cm??? LV Ejection Fraction MOD 4C 43.0 % LV Diastolic Length 4C 7.1 cm LV Systolic Length 4C 6.1 cm LV Diastolic Volume MOD 2C 90.3 cm??? LV Systolic Volume MOD 2C 42.6 cm??? LV Ejection Fraction MOD 2C 52.9 % LV Diastolic Length 2C 7.0 cm LV Systolic Length 2C 5.8 cm M-MODE Aortic Root Diameter MM 2.4 cm LA Systolic Diameter MM 3.3 cm LA Ao Ratio MM 1.4 AV Cusp Separation MM 1.9 cm DOPPLER AV Peak Velocity 166.8 cm/s AV Peak Gradient 11.1 mmHg AV Mean Gradient 6.3 mmHg AV Velocity Time Integral 38.8 cm LVOT Peak Velocity 108.8 cm/s LVOT Peak Gradient 4.7 mmHg LVOT Velocity Time Integral 24.8 cm Mitral E Point Velocity 66.1 cm/s Mitral A Point Velocity 77.4 cm/s Mitral E to A Ratio 0.9 MV Deceleration Time 148.6 ms FINDINGS Left Ventricle Left ventricular ejection fraction is estimated at 45-50%. Left ventricular cavity size normal. Left ventricular wall thickness normal. Mildly reduced global left ventricular systolic function. Right Ventricle Normal right ventricular size and function. Right ventricular systolic pressure within normal limits. Right Atrium Normal right atrial size. Left Atrium Normal left atrial size. Mitral Valve Structurally normal mitral valve. Trace to mild mitral regurgitation. Aortic Valve Trileaflet aortic valve. No aortic stenosis. Trace aortic regurgitation. Tricuspid Valve Structurally normal tricuspid valve. Mild tricuspid regurgitation. Pulmonic Valve Structurally normal pulmonic valve. Trace pulmonic regurgitation. No pulmonic stenosis. Pericardium No pericardial or pleural effusion. Aorta Normal size aortic root and proximal ascending aorta. CONCLUSIONS Mildly reduced LV systolic function globally ejection fraction 45 to 50% Previewed by: Dr. Stephen Aponte MD (Electronically Signed) Final Date: 24 April 2024 11:26
== END | disposition home or self-care (01) ==
LOC: RADECHMAIN 08:31
PROVIDERS: ATTEND Internal Medicine Hematology & Oncology
DX: Z01.818 Encounter for other preprocedural examination (principal); C50.412 Malignant neoplasm of upper-outer quadrant of left female breast; Z71.3 Dietary counseling and surveillance
CPT/HCPCS: 93306

== ENCOUNTER → 2024-05-13 | Outpatient (CLI) | payer BC ==
--- NOTE | 2024-05-21 23:18 | MR ---
EXAMINATION TYPE: MR brain wo/w con DATE OF EXAM: 05/13/2024 COMPARISON: 01/28/2024 HISTORY: 48-year-old female C79.31 Breast cancer since April 2023, Rt side weakness TECHNIQUE: Multiplanar, multisequence images of the brain and brainstem were acquired before and aft er administration of 6 mL IV Gadavist. Diffusion weighted imaging is performed. FINDINGS: No evidence for acute infarction, mass effect, midline shift, herniation, effacement of basal cistern s, or extra-axial fluid collection. The ventricles and sulci are age-appropriate. Major intracranial flow voids are intact. T2/FLAIR weighted sequences show no significant right white matter signal abnormality. A 6 mm focal a murtaza of encephalomalacia in the subcortical region of the anterior left frontal lobe. A couple enhancing foci within the inferior right cerebellum measuring 7 mm and 6 mm. This is a 6 mm and 10 mm, respectively on prior exam. One focus of enhancement in the posterior left cerebellum measuring 4 mm, unchanged. However, approximately 3 other enhancing foci within the lateral aspect of the left cerebellar hemisp here appear to have resolved. A previously enhancing lesion in the left thalamus shows a 5 mm focus of bright T2 signal but no asso ciated enhancement on the present exam. No other abnormal enhancing lesions are seen. A nodule, one on either side along the parietal convexities measuring he up to 6 mm, unchanged. Dural venous sinuses are patent. Mild mucosal thickening throughout the ethmoid air cells. Prominent CSF fluid along the optic nerve s heaths. In addition, there is a partially empty sella noted. Otherwise, midline structures demonstrate normal morphology. The craniocervical junction is normal. IMPRESSION: 1. Some interval fluctuation but with overall continued treatment response. In the right cerebellum, one lesion is slightly larger while the other is smaller. Measuring up to 7 mm. 2. A 4 mm focus in the left cerebellum is unchanged. However, approximately three other lesions in th e lateral left cerebellum have resolved. 3. A 5 mm lesion in the left thalamus no longer enhances. 4. No new enhancing lesions seen.
== END | disposition home or self-care (01) ==
LOC: RADMRIMAIN 13:19
PROVIDERS: ATTEND Radiology Radiation Oncology
DX: C79.31 Secondary malignant neoplasm of brain (principal); C77.3 Secondary and unspecified malignant neoplasm of axilla and upper limb lymph nodes; C79.51 Secondary malignant neoplasm of bone; C80.1 Malignant (primary) neoplasm, unspecified
CPT/HCPCS: 70553; A9585

== ENCOUNTER → 2024-07-02 | Outpatient (CLI) | payer BC ==
--- NOTE | 2024-07-22 12:35 | PE ---
Patient: MonikFebruary Ordering Physician: Unknown, Unknown ID: [id number] Phone, Pager: Phone: N/A P ager: N/A : 1975 Age/Gender: 48Y, F Primary Location: N/A Procedure: PET CT fusion skull to thigh Study Date: 07/02/2024 12:21:00 PM EXAMINATION TYPE: PET CT fusion skull to thigh DATE OF EXAM: 07/04/2024 CLINICAL INDICATION: Left breast cancer TECHNIQUE: Following the intravenous administration of 8.66 mCi of F-18 FDG, whole body images are performed from the skull base to the midthigh. Images are reviewed on the computer in the coronal, a xial, and sagittal planes. Reconstructed rotating images are created on independent workstation and reviewed on the computer. A non-contrast CT is performed in conjunction with the PET scan. Glucose level 78 mg/dL CT DLP: 398 mGycm, Automated exposure control for dose reduction was used. COMPARISON: CT 02/19/2023, PET/CT 01/02/2024, MRI: 05/13/2024 FINDINGS: Mediastinal SUV mean is 1.71. Hepatic parenchyma SUV mean is 2.1. SKULL BASE AND NECK: * No suspicious radiotracer activity. * Brown fat uptake within the neck and shoulders suggested with additional areas of of fat thought t o be along the sympathetic chain left greater than right. * Right thyroid gland uptake max SUV 9.3 and left thyroid gland 7.4. CHEST, MEDIASTINUM, AND HILAR REGION: * No suspicious radiotracer activity. * Scattered sub-5 mm pulmonary nodules including the largest measuring 4 mm left lower lobe pulmonar y nodule stable from prior. No new or enlarging pulmonary nodules definitively visualized. This is jennifer th retroperitoneal PET/CT. ABDOMEN AND PELVIS: No suspicious radiotracer activity. MUSCULOSKELETAL STRUCTURES: No suspicious radiotracer activity. Diffuse osseous demineralization with thin the sclerotic lesions in the right iliac bone no suspicious uptake. OTHER CT: Cholecystectomy clips. Right chest wall [id number] tip in appropriate position. Moderate to large stool throughout colon. IMPRESSION: 1. No suspicious uptake. There is new metabolically active fat throughout the bilateral shoulders an d lower neck and along the sympathetic chain on the left. No lymphadenopathy.
== END | disposition home or self-care (01) ==
LOC: RADPETMAIN 11:00
PROVIDERS: ATTEND Internal Medicine Hematology & Oncology
DX: C50.412 Malignant neoplasm of upper-outer quadrant of left female breast (principal); Z71.3 Dietary counseling and surveillance
CPT/HCPCS: 78815; A9552

== ENCOUNTER → 2024-08-11 | Outpatient (CLI) | payer BC ==
--- NOTE | 2024-08-12 09:41 | MR ---
PRE AND POSTCONTRAST ENHANCED MRI OF THE BRAIN: CLINICAL HISTORY: Metastatic disease follow-up CONTRAST: 6 ML Gadavist comparison: 05/13/2024 Multiplanar and multispin-echo imaging of the brain was performed both before and after the administr ation of contrast. Cerebellar lesions are stable and overall number and total approximately 5 in number however the lesi ons appear to have enlarged slightly. For example low right cerebellar lesion currently measures 9 mm versus 7.4 mm previously. Additional right cerebellar lesion is enlarged at 7.9 mm versus 5.7 mm. A left-sided cerebellar lesion currently measures 3.4 mm versus 1 mm previously. No new supratentorial lesions are seen. Lesion noted previously within the left thalamus measuring 5 mm fails to enhance and is stable. There is also an area of decreased signal within the left frontal lobe which is unchanged as well as adjacent to the splenium of the corpus callosum on the right. The ventricles, basal cisterns and sulci overlying the cerebral convexities are within normal limits. There is no evidence for midline shift or mass effect. Acute intracranial hemorrhage or extra-axial collection is not evident. The paranasal sinuses are well-aerated. Mild mastoid increased signal suggesting mild chronic mastoid itis. IMPRESSION: 1. Overall number of cerebellar lesions appear stable however the lesions appear to have increased in size. No new lesions seen within the supratentorial brain. See above. [facility], , 08/12/2024 9:38 AM
== END | disposition home or self-care (01) ==
LOC: RADMRIMAIN 10:49
PROVIDERS: ATTEND Radiology Radiation Oncology
DX: C79.31 Secondary malignant neoplasm of brain
CPT/HCPCS: 70553

== ENCOUNTER → 2024-10-05 | Outpatient (CLI) | payer BC ==
[2024-10-05 16:16] LABS: Basophils # (A) 0.05 X 10*3/uL (0.00-0.10); Basophils % (A) 0.8 %; Eosinophils % (A) 3.1 %; HCT 38.8 % (37.2-46.3); HGB 12.3 g/dL (12.0-15.0); Lymphocytes # (A) 1.31 X 10*3/uL (0.90-5.00); Lymphocytes % (A) 20.4 %; MCH 29.6 pg (27.0-32.0); MCHC 31.7 g/dL (32.0-37.0); MCV 93.3 FL (80.0-97.0); Mean Platelet Volume 11.3 FL (9.5-12.2); Monocytes # (A) 0.52 X 10*3/uL (0.20-1.00); Monocytes % (A) 8.1 %; NRBC Per 100 WBC 0 X 10*3/uL (0.00-0.01); Neutrophils # (A) 4.32 X 10*3/uL (1.80-7.70); Neutrophils % (A) 67.3 %; Platelet Count 241 X 10*3/uL (140-440); RBC 4.16 X 10*6/uL (4.10-5.20); RDW 12.7 % (11.5-14.5); WBC 6.42 X 10*3/uL (4.50-10.00)
[2024-10-05 16:26] LABS: ALT 9 U/L (8-44); AST 14 U/L (13-35); Albumin 4.5 g/dL (3.8-4.9); Alkaline Phosphatase 64 U/L (41-126); BUN/Creat Ratio 25.86 Ratio (12.00-20.00); Blood Urea Nitrogen 18.1 mg/dL (9.0-27.0); Calcium 9.6 mg/dL (8.7-10.3); Carbon Dioxide 27.6 mmol/L (21.6-31.8); Chloride 107 mmol/L (96-109); Chol/HDL Ratio 2.72 Ratio; Globulin 2.5 g/dL (1.6-3.3); Glucose 99 mg/dL (70-110); LDL Cholesterol,Calculated 106.6 mg/dL (0.0-131.0); Potassium 4.3 mmol/L (3.5-5.5); Sodium 146 mmol/L (135-145); T4, Free (Free Thyroxine) 0.95 ng/dL (0.80-1.80); Total Bilirubin 0.3 mg/dL (0.3-1.2); VLDL Calculation 13.54 mg/dL (5.00-40.00)
== END | disposition home or self-care (01) ==
LOC: LABWHC1 09:03
PROVIDERS: ATTEND Family Medicine
DX: Z00.00 Encounter for general adult medical examination without abnormal findings (principal); I10 Essential (primary) hypertension
CPT/HCPCS: 36415; 80053; 80061; 84439; 84443; 84481; 85025

== ENCOUNTER → 2024-10-19 | Outpatient (CLI) | payer BC ==
--- NOTE | 2024-10-19 16:31 | MR ---
EXAMINATION TYPE: MR brain wo/w con DATE OF EXAM: 10/19/2024 2:44 PM COMPARISON: None. CLINICAL INDICATION: Female, 48 years old with history of C79.31,C77.3,C79.51, breast cancer. TECHNIQUE: Multiplanar, multiecho imaging on a 3.0 Yajaira magnet is performed through the brain. Stud y is performed within 24 hours of arrival to the hospital.Multiplanar, multiecho imaging on a 3.0 Chinyere la magnet is performed through the knee. IV Contrast: 6 mL Gadobutrol (None, if empty) FINDINGS: The craniovertebral junction is normal. The pituitary is normal. Optic chiasm appears normal Diffusion-weighted imaging is performed. No abnormal hyperintensity is present to suggest an acute i ntracranial infarct or acute ischemic change. There is some hyperintensity within the posterior medial right cerebellum may be related to microvasc ular ischemic change. Couple of small areas of hyperintensity are within the left mid cerebellum and in the peripheral right cerebellum. These areas correlate with areas of enhancement on the post contr ast imaging. In the posterior lateral left mid cerebellum is measured 1.1 cm at the inferior right ce rebellum periphery this measures 1.3 cm. There is an area measuring 1.1 cm in the inferior right cer ebellum. Findings have enlarged from the comparison study. Small hyperintensity within the left thalamus may be a prior lacunar infarct. There is mild periventr icular white matter hyperintensity most likely invasive chronic white matter ischemic changes Ventricles and sulci are appropriate for the patient age. IMPRESSION: 1. Enlarging enhancing masses within the cerebellum with mild adjacent vasogenic edema. Metastasis ap pears to be limited to the infratentorial region. 2. Chronic appearing periventricular white matter hyperintensity more likely related to microvascular ischemic change. Old left thalamic lacunar infarct is present. No suspicious acute enhancing masses within the cerebrum [facility], , 10/19/2024 4:28 PM
== END | disposition home or self-care (01) ==
LOC: RADMRIMAIN 13:06
PROVIDERS: ATTEND Radiology Radiation Oncology
DX: C79.31 Secondary malignant neoplasm of brain (principal); C77.3 Secondary and unspecified malignant neoplasm of axilla and upper limb lymph nodes; C79.51 Secondary malignant neoplasm of bone; G93.6 Cerebral edema; Z86.73 Personal history of transient ischemic attack (TIA), and cerebral infarction without residual deficits
CPT/HCPCS: 70553; A9585

== ENCOUNTER → 2025-01-07 | Outpatient (CLI) | payer BC ==
--- NOTE | 2025-01-09 17:07 | PE ---
EXAMINATION TYPE: PET CT fusion skull to thigh DATE OF EXAM: 01/07/2025 COMPARISON: No recent pertinent CT Prior PET/CT: 07/02/2024 CLINICAL INDICATION: Female, 49 years old with history of C50.412 BREAST CANCER, TECHNIQUE: Following the intravenous administration of 11.69 mCi of F-18 FDG, whole body images are performed from the skull base to the midthigh. Images are reviewed on the computer in the coronal, axial, and sagittal planes. Reconstructed rotating images are created on independent workstation and reviewed on the computer. A localization and attenuation correction CT is performed in conjunction with the PET scan. DLP: 384.06 mGycm SCAN: Subsequent Blood glucose: 85 mg/dL Average Mediastinum SUV: 2.1 Average Liver SUV: 2.13 FINDINGS: NECK: There is focal uptake within the right neck adjacent to the anterior lateral cervical spine. A dditional soft tissue uptake is present anteriorly above the level of the thyroid, image 71, SUV on t he right 7.02 and on the left 7.38. There is some uptake within the thyroid. THORAX: There are several foci of uptake within the left breast. The most intense largest image 109 h as an SUV of 12.24. Medially image 109 has an SUV of 7.5. Inferior and lateral image 113 has an SUV o f 8.39. No suspicious uptake within the axillary regions is evident. No mediastinal or hilar adenopat hy with abnormal uptake is evident. No enlarged lymphadenopathy is evident. ABDOMEN: Focal uptake is within the left adrenal gland image 137, SUV 12.2. PELVIS: No abnormal uptake OSSEOUS STRUCTURES: No abnormal uptake LOCALIZATION CT: Density within the left breast may be related to the patient's known breast cancer COMPARISON: Uptake in the region of the thyroid was present previously. Uptake within the left breast on the current examination is present on the prior exam. There is increased uptake in the adrenal gl and on the current exam. IMPRESSION: 1. Scattered areas of uptake within the left breast. Recurrent or new neoplastic process should be co nsidered. Additional workup recommended. 2. Increased uptake within the left adrenal gland suspicious for metastatic lesion. 3. Uptake in the region of the thyroid was present previously. Some underlying inflammatory or other thyroid abnormality may be present. Thyroid workup recommended. [facility], Workstation: [id number], 01/09/2025 5:04 PM
== END | disposition home or self-care (01) ==
LOC: RADPETMAIN 07:49
PROVIDERS: ATTEND Internal Medicine Hematology & Oncology
DX: C50.412 Malignant neoplasm of upper-outer quadrant of left female breast (principal)
CPT/HCPCS: 78815; A9552

== ENCOUNTER → 2025-02-01 | Outpatient (CLI) | payer BC ==
--- NOTE | 2025-02-01 15:48 | MR ---
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 FINDINGS: Diffusion weighted images demonstrate no evidence of a recent infarct or other diffusion ab normality. Mild degenerative change. Abnormal signal in the white matter most typical of microvascula r remote white matter disease. Tiny area of abnormal signal left thalamus suggestive for There is interval reduction in size of the right cerebellar hemispheric lesion previously measured 10 x 6 mm and now measures 7.7 x 1.9 mm. Second right cerebellar hemispheric lesion previously measured a maximal dimension of 1.3 cm x 0.8 now measures 0.7 x 0.5 cm. Left cerebellar hemispheric lesions are markedly reduced in size with the anterior lesion now measuri ng 1 to 2 mm and previously measuring approximately 3.5 mm. The larger cerebellar lesion previously m easured 8 x 4 mm and now measures 3.2 x 1 mm. Peripheral additional left cerebellar lesion previously measured a maximal dimension of 1.1 cm and no w measures a maximal dimension of 0.5 cm. Within the cerebellar vermis on the left there is a new 5.3 mm lesion. There is a 3 mm nodule in the right frontal/parietal cortex is new. Midline structures demonstrate normal morphology. The craniocervical junction appears within normal limits. Partially empty sella turcica. Dural venous sinuses appear patent. Changes of chronic sinusit is. IMPRESSION: 1. There is interval significant reduction in size of multiple cerebellar hemispheric lesions as heather ured above. 2. There is interval development of a new left cerebellar vermis 5.3 mm lesion and new 3 mm lesion in right frontal/parietal cortex. [facility], , 02/01/2025 3:45 PM
== END | disposition home or self-care (01) ==
LOC: RADMRIMAIN 13:16
PROVIDERS: ATTEND Radiology Radiation Oncology
DX: C79.31 Secondary malignant neoplasm of brain (principal); C77.3 Secondary and unspecified malignant neoplasm of axilla and upper limb lymph nodes; C79.51 Secondary malignant neoplasm of bone; G93.9 Disorder of brain, unspecified
CPT/HCPCS: 70553; A9585

== ENCOUNTER → 2025-05-20 | Outpatient (CLI) | payer BC ==
--- NOTE | 2025-05-23 19:29 | PE ---
EXAMINATION TYPE: PET CT fusion skull to thigh DATE OF EXAM: 05/20/2025 CLINICAL INDICATION:Female, 49 years old with history of C50.412 BREAST CANCER; TECHNIQUE: Following the intravenous administration of 9.54 mCi of F-18 FDG, whole body images are performed from the skull base to the Mid thigh. Images are reviewed on the computer in the coronal, axial, and sagittal planes. Reconstructed rotating images are created on independent workstation and reviewed on the computer. A non-contrast CT is performed in conjunction with the PET scan. Glucose level 100 mg/dL CT DLP: 384 mGycm, Automated exposure control for dose reduction was used. COMPARISON: CT none, PET/CT 01/07/2025 and 07/04/2024, MRI: None FINDINGS: Mediastinal SUV mean is 2.8. Hepatic parenchyma SUV mean is 3.2. SKULL BASE AND NECK: * No suspicious radiotracer activity. * Brown fat uptake within the neck and shoulders suggested with additional areas of of fat thought t o be along the sympathetic chain left greater than right. * Right thyroid gland uptake max SUV 7.6, previously 9.3 and left thyroid gland 6.9, previous 7.4. CHEST, MEDIASTINUM, AND HILAR REGION: * Significant reduction in left breast uptake seen on prior no suspicious uptake in the left breast on today's exam. * Scattered sub-5 mm pulmonary nodules including the largest measuring 4 mm left lower lobe pulmonar y nodule stable from prior. No new or enlarging pulmonary nodules definitively visualized. This is jennifer th retroperitoneal PET/CT. * Brown fat uptake seen in the bilateral axilla is max SUV 5.6 on the right and 5.4 on the left. ABDOMEN AND PELVIS: No suspicious radiotracer activity. MUSCULOSKELETAL STRUCTURES: No suspicious radiotracer activity. Diffuse osseous metastatic disease no focal uptake appreciated. Somewhat diffuse lower levels of uptake and osseous structures compared to immediate prior. OTHER CT: Cholecystectomy clips. Right chest wall [id number] tip in appropriate position. Moderate to large stool throughout colon. IMPRESSION: 1. Reduction in uptake within the left breast seen on prior to 01/07/2025 suggesting positive respons e to therapy.. Brown fat in the bilateral axilla, neck and sympathetic chains noted. No FDG avid lymp h nodes within the visualized. 2. Diffuse osseous metastatic disease with heterogenous somewhat diffuse uptake throughout the osseo us structures. No focal lesions definitively visualized. Continued Surveillance recommended. [facility], , 05/23/2025 7:26 PM
== END | disposition home or self-care (01) ==
LOC: RADPETMAIN 08:19
PROVIDERS: ATTEND Internal Medicine Hematology & Oncology
DX: C50.412 Malignant neoplasm of upper-outer quadrant of left female breast (principal); C79.51 Secondary malignant neoplasm of bone
CPT/HCPCS: 78815; A9552